=== PATIENT | female | born 1965 | race Caucasian/White ===

== ENCOUNTER 2024-05-12 12:27 | Emergency (ER) | payer OTHER, SELFPAY ==
[2024-05-12 12:35] VITALS: BP 147/102
[2024-05-12 12:59] LABS: % Basophils 1.1 % (0-2); % Eosinophils 0.9 % (0-6); % Immature Granulocytes 0.2 % (0-0.5); % Lymphocytes 40.5 % (20.5-51.1); % Monocytes 7.9 % (1.7-9.3); % Neutrophils 49.4 % (42.2-75.2); Absolute Basophils 0.1 10^3/uL (0-0.2); Absolute Eosinophils 0.1 10^3/uL (0-0.7); Absolute Lymphocytes 2.2 10^3/uL (1.2-3.4); Absolute Monocytes 0.4 10^3/uL (0.1-0.6); Absolute Neutrophils 2.7 10^3/uL (1.4-6.5); Hematocrit 38.9 % (37.0-47.0); Hemoglobin 13.2 g/dL (12.0-16.0); Mean Corp Hgb Conc. 33.9 g/dL (33.0-37.0); Mean Corpuscular Hgb 30.7 pg (27.0-31.0); Mean Corpuscular Volume 90.5 fL (81.0-99.0); Mean Platelet Volume 10.5 fL (7.4-10.4); Nucleated Red Blood Cells % 0 %; Platelet Count 297 10^3/uL (130-400); Red Cell Dist. Width 12.8 % (11.5-14.5); White Blood Cell Count 5.5 10^3/uL (4.8-10.8)
[2024-05-12 13:14] LABS: ALT (SGPT) 22 U/L (0-35); AST (SGOT) 26 U/L (14-36); Albumin 4.4 g/dl (3.5-5.0); Alkaline Phosphatase 57 U/L (38-126); Blood Urea Nitrogen 20 mg/dl (7-17); Calcium 9.6 mg/dl (8.4-10.2); Carbon Dioxide 27 mmol/L (22-30); Chloride 104 mmol/L (98-107); Glucose 113 mg/dl (70-99); Potassium 4.2 mmol/L (3.5-5.1); Sodium 138 mmol/L (135-145); Total Bilirubin 0.6 mg/dl (0.2-1.3); Total Protein 7.6 g/dl (6.3-8.2); eGFR > 60.00
[2024-05-12 13:25] LABS: Troponin I < 0.012 ng/ml
--- NOTE | 2024-05-12 13:50 | EDRN ---
Dr. Wright in room w/ pt at thistime.
[2024-05-12 14:00] VITALS: BP 139/83
--- NOTE | 2024-05-12 14:01 | ED.GENMED ---
History of Present Illness
General
Chief Complaint: Breathing Problem
Source: patient
Exam Limitations: none
Time Seen by Provider: 05/12/24 13:49
History of Present Illness
History of Present Illness:
See MDM
Past History
Past History
ED Past Medical History: Hypothyroidism
ED Past Surgical History: Gynecological
Social History
Tobacco: Non-smoker
Personal: Single
Living: with family
Employment: Employed
Phy Exam
Physical Exam
Physical Exam:
See MDM
Scores
Heart Failure Risk
Heart Failure Risk Score: Not Applicable
Course
Orders/Labs/Results
Orders:
Orders
05/12/24 12:35
ECG [Electrocardiogram (*1)] Urgent
Reason for Study: Shortness of Breath
05/12/24 12:36
EKG- Treatment ONCE
05/12/24 12:46
Complete Blood Count/With Diff Urgent
Comprehensive Metabolic Panel Urgent
TSH Reflex To Free T4 Urgent
Comment: ADD ON
Troponin I Urgent
05/12/24 13:05
CR Chest - 2 Views Urgent
Comment:
Reason For Exam: soob
05/12/24 14:00
Add On- LAB Urgent
Tests Added?: TSH free T4
05/12/24 14:49
COVID-19 Antigen Urgent
Source: Nasal Swab
Influenza A+B Rapid Molecular Urgent
MAR Source: Nasal Swab
Specimen Description:
Abnormal Lab Results
05/12/24
12:46
MPV 10.5 H fL
(7.4-10.4)
BUN 20 H mg/dl
(7-17)
Glucose 113 H mg/dl
(70-99)
05/12/24 12:46
05/12/24 12:46
Vital Signs
Initial and Last Documented VS:
Initial Vital Signs
Temp Pulse Resp BP Pulse Ox
98.3 F 84 16 147/102 96
05/12/24 12:35 05/12/24 12:35 05/12/24 12:35 05/12/24 12:35 05/12/24 12:35
Last Documented Vital Signs
Temp Pulse Resp BP Pulse Ox
98.3 F 72 17 136/85 99
05/12/24 12:35 05/12/24 15:16 05/12/24 15:16 05/12/24 15:35 05/12/24 15:36
MDM/Problems Addressed
Differential Diagnosis Includes:
HPI and MDM Narrative:
58-year-old female presenting for evaluation of not feeling well. This started approximately 3 to 4 days ago. This is associated with mild cough. 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
feeling well. She was reassured that her vital signs were within normal limits but she called her PCP who sent her to the ER for further evaluation. Blood work and EKG done prior to my assessment. Labs and EKG without clinically significant
abnormality. Patient is curious about whether or not this could be related to her thyroid medicine. Will check TSH. Given the cough, will obtain chest x-ray. She has no clinical signs of DVT and is low risk for PE. Doubt PE given the
intermittent nature. Will check for COVID and flu as much of her symptoms appear to be viral related
Physical exam
General: Well appearing and non-toxic
HEENT: protecting airway. Moist mucous membranes
Neck: appears supple
CV: No evidence of cyanosis. Regular rate and rhythm
Resp: No accessory muscle use. Lungs clear
Abd: Non-distended
Extremities: No deformities. No unilateral tenderness or swelling
Neuro: alert
Psych: Normal affect
Skin: Intact
Problems Addressed including Acute and Chronic Conditions affecting care:
1. Feeling unwell
Acuity: acute
Prognosis: stable
Details: Blood work without clinically significant abnormality. EKG negative. Doubt ACS given that symptoms are not worse with exertion. Will obtain chest x-ray and viral testing
Updates
COVID and flu negative. Chest x-ray clear
TSH normal. Discussed return precautions
Differential Diagnosis (but not limited to): COVID, influenza, pneumonia
Testing considered: D-dimer but there is no clinical evidence to suspect DVT and she is neither tachycardic nor
Drug therapy (if applicable): OTC meds, please see d/c instruction regarding Rx drugs
Amount and/or Complexity of Data Reviewed
Clinical info obtained from: Patient
External data reviewed: N/A
Labs I independently reviewed (but not limited to): White blood cell count normal, troponin normal
Radiology: X-ray independently reviewed: Chest x-ray clear
Pulse Ox: not hypoxic
EKG independently reviewed: Sinus rhythm, normal axis, no STEMI
Manager Garage: N/A
Critical Care: N/A
Risk of Complication:
Social Determinants of health: Good social support
Discussed with other providers: N/A
Escalation of Care includes Admit/Obs: After being observed in the Emergency Department, pt stable for discharge.
Occasional wrong word or 'sound a like' substitutions may have occurred due to the inherent limitations of voice recognition software. Read the chart carefully and recognize, using context, where substitutions have occurred.
*Critical Care Note
Total Time (30-74mins, 75-104mins- exclusive of procedures): Not Applicable
ED Attending Note
-
Portions of this chart may have been created with voice recognition software.� Occasional wrong word or��sound alike� substitutions may have occurred due to the inherent limitations of voice recognition software.
Discharge Plan
Departure
Patient Disposition: Home (Routine Discharge)
Date of Disposition: 05/12/24
Time of Disposition: 17:35
Patient with high blood pressure during this ER visit?: No
Discharge Problem:
Paresthesia
Prescriptions:
No Action
No Current Medications
hydrocodone-acetaminophen 1 EACH tablet
1 ea PO Q4HPRN PRN (Reason: pain) Qty: 15 0RF
hydrocodone-acetaminophen [Vicodin] 1 EACH tablet
1 ea PO Q6HPRN PRN (Reason: pain) Qty: 8 0RF
oxycodone-acetaminophen 5 MG/325 MG tablet
1 tab PO Q4HPRN PRN (Reason: pain) Qty: 18 0RF
Referrals:
Katya Jaramillo MD [Family Provider] -
Activity Restrictions/Additional Instructions:
Please return for any worsening symptoms.
You may return at any time if you have further concerns.
Please follow up with your doctor at the first available appointment, preferably this week.
Thank you for choosing [facility].
Interventions
Interventions:
*Risk Screen - Suicide Last Done: 05/12/24 15:42
*General Assessment Last Done: 05/12/24 15:41
*Neglect/Abuse Screening Last Done: 05/12/24 15:41
*ED- Fall Risk Assessment Last Done: 05/12/24 15:41
*ED COVID-19 Vaccine History Last Done: 05/12/24 15:41
ED- Cardiac Assessment Last Done: 05/12/24 15:43
ED- Pulmonary Assessment Last Done: 05/12/24 15:43
Discharge Date and Time
Print Language: KYRGYZ
[2024-05-12 14:42] VITALS: BP 133/87
[2024-05-12 15:00] VITALS: BP 132/85
[2024-05-12 15:24] LABS: COVID-19 Antigen Negative (Negative)
[2024-05-12 15:35] VITALS: BP 136/85
[2024-05-12 15:38] VITALS: BMI 23.4
--- NOTE | 2024-05-12 15:40 | EDRN ---
Pt states that this am she awoke w/ tingling in her feet, lips and fingers and still has this, also w/ SOB, which she still has. Pt called PCP who advised she come to ER to be seen.
--- NOTE | 2024-05-12 17:25 | EDRN ---
Lab called for TSH update and this RN was told to be done in a minute after tech checked lab. Dr. Wright was TT'd w/ this info.
[2024-05-12 17:42] VITALS: BP 144/84
== END 2024-05-12 17:45 | disposition home or self-care (01) ==
LOC: EMR 12:27
PROVIDERS: Student in an Organized Health Care Education/Training Program; EMERGENCY PHYSICIAN Student in an Organized Health Care Education/Training Program; FAMILY PHYSICIAN Internal Medicine
DX: R20.2 Paresthesia of skin (principal); E03.9 Hypothyroidism, unspecified
CPT/HCPCS: 99283; 71046; 80053; 84443; 84484; 85025; 87502; 87811; 93005

== ENCOUNTER → 2024-06-06 08:27 | Outpatient (REF) | payer OTHER, SELFPAY | LOC: HWRAD 08:27 | PROVIDERS: ATTENDING PHYSICIAN Nurse Practitioner; REFERRING PHYSICIAN Orthopaedic Surgery | DX: M75.52 Bursitis of left shoulder (principal); R22.32 Localized swelling, mass and lump, left upper limb; R59.0 Localized enlarged lymph nodes | CPT/HCPCS: 73200 ==

== ENCOUNTER 2024-08-21 06:30 | Day surgery (SDC) | payer OTHER, SELFPAY ==
[2024-08-13 10:05] VITALS: BMI 23.2
[2024-08-21] VITALS (9 sets, daily range): BP systolic 131–151; BP diastolic 88–95; BMI 23.2
[2024-08-21] MEDS: TYLENOL 1000 MG PO (09:18)
[2024-08-21] MEDS: CELEBREX 200 MG PO (09:18)
[2024-08-21] MEDS: NORMOSOL-R/PLASMALYTE-A 1000 IV (09:33)
[2024-08-21 13:12] LABS: Glucose - Point of Care 79 mg/dl (70-99)
== END 2024-08-21 14:17 | disposition home or self-care (01) ==
LOC: SDS 06:30
PROVIDERS: ATTENDING PHYSICIAN Orthopaedic Surgery; FAMILY PHYSICIAN Internal Medicine
DX: R22.32 Localized swelling, mass and lump, left upper limb (principal); D17.22 Benign lipomatous neoplasm of skin and subcutaneous tissue of left arm
CPT/HCPCS: 24071; 36415; 82962; 88304; 93005

== ENCOUNTER → 2024-11-13 10:29 | Outpatient (REF) | payer OTHER, SELFPAY | LOC: RAD 10:29 | PROVIDERS: ATTENDING PHYSICIAN Internal Medicine | DX: M79.671 Pain in right foot (principal) | CPT/HCPCS: 73630 ==